=== PATIENT | female | born 1945 | race Caucasian/White ===

== ENCOUNTER → 2016-03-14 | Outpatient (CLI) | payer OTHER, BC ==
[2016-03-17 01:31] LABS: CRYPTOSPORIDIUM AG TC 37213 NOT DETECTED (NOT DETECTED); O&P GIARDIA AG NOT DETECTED (NOT DETECTED)
== END | disposition home or self-care (01) ==
LOC: C.LABMFLN 17:03
PROVIDERS: ATTEND Family Medicine
DX: R19.7 Diarrhea, unspecified (principal)

== ENCOUNTER → 2016-04-23 | Outpatient (CLI) | payer OTHER, BC ==
[2016-04-23 18:39] LABS: BASO % 0.5 %; BASO ABS # 0.02 K/uL (0-0.2); COMPLETE YES; EOS % 2.4 %; HEMATOCRIT 38.8 % (37-47); LYMPH % 25.9 %; LYMPH ABS # 0.96 K/uL (1.2-3.4); MEAN CELL VOLUME 82.2 fL (80-100); MEAN CORPUSCULAR HEMOGLOBIN 27.3 pg (25-34); MEAN CORPUSCULAR HGB CONC 33.2 g/dl (32-36); MONO % 10.5 %; NEUT % 60.7 %; PLATELET COUNT 172 K/uL (130-400); RED BLOOD COUNT 4.72 M/uL (4.2-5.4); WHITE BLOOD COUNT 3.71 K/uL (4.8-10.8)
[2016-04-23 20:31] LABS: LYME DISEASE AB IGG NEG (NEG); LYME DISEASE AB IGM NEG (NEG)
--- NOTE | 2016-04-30 14:03 | CODING QUERY MEDICAL NECESSITY ---
CQSUPPORTING DIAGNOSIS NEEDED A supporting diagnosis is required for the test/procedure performed on this patient in order for us to be reimbursed by the patient's insurance. Please provide a supporting diagnosis for the following test/procedure listed below next to the test name along with your signature. *If there is no additional diagnosis for this patient that would support the following test/procedure please document that below next to the test/procedure. Test(s)/Procedure(s) that require a supporting diagnosis: DOS 04/23/16 SCREENING FOR SEXUALLY TRANSMITTED DISEASES-ANASTASIIA SCREEN ANTI -68 kd AG (HSP) NEED DIAGNOSIS AND SIGNATURE TEST ORDERED BY ROBERT SKAGGS Provider Signature: Date: Thank you Stephanie [facility] Once completed, please kindly fax back to [phone] For questions please call [phone]
== END | disposition home or self-care (01) ==
LOC: C.LABMFLN 11:20
DX: H91.20 Sudden idiopathic hearing loss, unspecified ear (principal)

== ENCOUNTER → 2016-05-28 | Outpatient (CLI) | payer OTHER, BC ==
[2016-05-28 14:30] LABS: BLOOD UREA NITROGEN 14 mg/dl (7-18); BUN/CREATININE RATIO 15.5 (10-20); CALCIUM 8.8 mg/dl (8.5-10.1); CARBON DIOXIDE 28 mmol/L (21-32); CHLORIDE 99 mmol/L (98-107); CREATININE 0.93 mg/dl (0.60-1.20); GLUCOSE 126 mg/dl (70-99); PHOSPHORUS 3.3 mg/dl (2.5-4.9); POTASSIUM 3.6 mmol/L (3.5-5.1); SODIUM 135 mmol/L (136-145)
== END | disposition home or self-care (01) ==
LOC: C.LABMFLN 08:33
PROVIDERS: ATTEND Family Medicine
DX: I10 Essential (primary) hypertension (principal)

== ENCOUNTER → 2016-07-12 | Outpatient (CLI) | payer OTHER, BC | END | disposition home or self-care (01) | LOC: C.PATHSPEC 16:56 | PROVIDERS: ATTEND Dermatology | DX: L82.1 Other seborrheic keratosis (principal) ==

== ENCOUNTER → 2017-06-05 | Outpatient (CLI) | payer OTHER, BC ==
[2017-06-05 18:05] LABS: BASO % 0.2 %; BASO ABS # 0.01 K/uL (0-0.2); EOS % 0.7 %; EOS ABS # 0.03 K/uL (0-0.5); HEMATOCRIT 36.1 % (37-47); HEMOGLOBIN 11.9 g/dL (12.0-16.0); LYMPH % 27.9 %; LYMPH ABS # 1.21 K/uL (1.2-3.4); MEAN CORPUSCULAR HEMOGLOBIN 27.4 pg (25-34); MEAN PLATELET VOLUME 10.8 fL (7.4-10.4); MONO % 11.3 %; MONO ABS # 0.49 K/uL (0.11-0.59); NEUT % 59.9 %; NEUT ABS # 2.59 K/uL (1.4-6.5); PLATELET COUNT 195 K/uL (130-400); RED CELL DISTRIBUTION WIDTH CV 13.1 % (11.5-14.5); RED CELL DISTRIBUTION WIDTH SD 39.8 fL (36.4-46.3); WHITE BLOOD COUNT 4.33 K/uL (4.8-10.8)
[2017-06-05 19:46] LABS: ALBUMIN 4.1 gm/dl (3.4-5.0); BLOOD UREA NITROGEN 11 mg/dl (7-18); CALCIUM 9.2 mg/dl (8.5-10.1); CARBON DIOXIDE 31 mmol/L (21-32); GLUCOSE 100 mg/dl (70-99); POTASSIUM 3.6 mmol/L (3.5-5.1); SODIUM 130 mmol/L (136-145)
[2017-06-05 19:56] LABS: PHOSPHORUS 3.4 mg/dl (2.5-4.9)
== END | disposition home or self-care (01) ==
LOC: C.LABMFLN 13:13
PROVIDERS: ATTEND Family Medicine
DX: I10 Essential (primary) hypertension (principal); E03.9 Hypothyroidism, unspecified

== ENCOUNTER → 2017-06-13 | Outpatient (CLI) | payer OTHER, BC ==
[2017-06-13 14:05] LABS: ALBUMIN 3.8 gm/dl (3.4-5.0); BLOOD UREA NITROGEN 11 mg/dl (7-18); CALCIUM 9.1 mg/dl (8.5-10.1); CARBON DIOXIDE 30 mmol/L (21-32); CREATININE 0.97 mg/dl (0.60-1.20); GLUCOSE 91 mg/dl (70-99); PHOSPHORUS 3.6 mg/dl (2.5-4.9); POTASSIUM 3.8 mmol/L (3.5-5.1); SODIUM 132 mmol/L (136-145)
== END | disposition home or self-care (01) ==
LOC: C.LABMFLN 08:07
PROVIDERS: ATTEND Family Medicine
DX: E87.1 Hypo-osmolality and hyponatremia (principal)